=== PATIENT | female | born 1960 | race Caucasian/White ===

== ENCOUNTER → 2017-01-18 | Outpatient (CLI) | payer BC ==
--- NOTE | 2017-01-18 10:45 | USB ---
Reason for exam: additional evaluation requested from prior study. History: Patient had first child at age 32. Physical Findings: Nurse did not find any significant physical abnormalities on exam. US Breast LT Left breast ultrasound includes all four quadrants, the retroareolar region and axilla. Finding demonstrate no cystic or solid lesion seen. These results were verbally communicated with the patient and result sheet given to the patient on 01/18/17. ASSESSMENT: Negative, BI-RAD 1 RECOMMENDATION: Routine screening mammogram of both breasts. Manage on a clinical basis with regard to abnormal thermoscan.
== END ==
LOC: RADUSWWP 08:44
PROVIDERS: ATTEND Family Medicine
DX: R92.8 Other abnormal and inconclusive findings on diagnostic imaging of breast (principal)

== ENCOUNTER → 2018-10-12 | Outpatient (CLI) | payer BC ==
--- NOTE | 2018-10-12 08:01 | USB ---
Reason for exam: additional evaluation requested from prior study. History: Patient had first child at age 32. Physical Findings: Nurse did not find any significant physical abnormalities on exam. US Breast BILAT Right complete breast ultrasound includes all four quadrants, the retroareolar region and axilla. Finding demonstrates no cystic or solid lesion seen. Left complete breast ultrasound includes all four quadrants, the retroareolar region and axilla. Finding demonstrates no cystic or solid lesion seen. Compared to 01/18/17 ultrasound, mammogram is recommended. These results were verbally communicated with the patient and result sheet given to the patient on 10/12/18. ASSESSMENT: Negative, BI-RAD 1 RECOMMENDATION: Routine screening mammogram of both breasts. (due now for mammogram)
--- NOTE | 2018-10-12 10:43 | US ---
EXAMINATION TYPE: US transvaginal DATE OF EXAM: 10/12/2018 COMPARISON: NONE CLINICAL HISTORY: R10.2Pelvic and perineal pain. Pt states LLQ pain x many years/ history of ablatio n 8 yrs ago TECHNIQUE: Transvaginal (TV). Transvaginal sonographic images of the pelvis were acquired. Date of LMP: 8 yrs ago EXAM MEASUREMENTS: Uterus: 6.7 x 2.7 x 4.0 cm Endometrial Stripe: 0.2 cm Right Ovary: 1.5 x 1.9 x 1.0 cm Left Ovary: 1.8 x 1.2 x 1.3 cm 1. Uterus: Anteverted Heterogeneous 2. Endometrium: thickness wnl, small calcification= 0.2 x 0.2 x 0.2 cm 3. Right Ovary: wnl 4. Left Ovary: wnl 5. Bilateral Adnexa: wnl 6. Posterior cul-de-sac: wnl IMPRESSION: 1. Echogenic foci with posterior shadowing within the endometrial canal measuring approximately 0.2 c m in size.
== END | disposition home or self-care (01) ==
LOC: RADUSWWP 06:52
PROVIDERS: ATTEND Family Medicine
DX: R93.89 Abnormal findings on diagnostic imaging of other specified body structures (principal); R10.2 Pelvic and perineal pain; N63.0 Unspecified lump in unspecified breast
CPT/HCPCS: 76830

== ENCOUNTER 2019-10-23 16:24 | Observation (INO) | payer BC ==
[2019-10-23 18:04] LABS: HCT 41.9 % (34.0-46.0); HGB 14.7 gm/dL (11.4-16.0); MCH 30.9 pg (25.0-35.0); MCHC 35.1 g/dL (31.0-37.0); Mean Platelet Volume 7.9; Platelet Count 258 k/uL (150-450); RBC 4.76 m/uL (3.80-5.40); RDW 12.2 % (11.5-15.5); WBC 6.3 k/uL (3.8-10.6)
[2019-10-23 18:17] LABS: Albumin 4.7 g/dL (3.5-5.0); Calcium 9.7 mg/dL (8.4-10.2); Potassium 4.2 mmol/L (3.5-5.1); Total Bilirubin 0.6 mg/dL (0.2-1.3); Total Protein 8.1 g/dL (6.3-8.2)
[2019-10-23 18:21] LABS: Prothrombin Time 10.4 sec (9.0-12.0)
[2019-10-23 18:31] LABS: Band Neutrophils % 6 %; Eosinophils # (M) 0.06 k/uL (0-0.7); Lymphocytes # (M) 1.51 k/uL (1.0-4.8); Monocytes # (M) 0.25 k/uL (0-1.0); Neutrophils % (M) 65 %; Nucleated Red Blood Cells 0 /100 WBC (0-0); Total Cells Counted 100
[2019-10-23] MEDS ORDERED: HEPARIN SODIUM,PORCINE 5,000 UNIT/ML 1 ML VIAL IV PRN (18:34)
[2019-10-23] MEDS ORDERED: HEPARIN SODIUM,PORCINE 5,000 UNIT/ML 1 ML VIAL IV ONE (18:34)
[2019-10-23] MEDS ORDERED: HEPARIN SOD,PORK IN 0.45% NACL 25,000 UNIT in 0.45% NACL 1 250ML.BAG IV SCH (18:45)
[2019-10-23] MEDS ORDERED: NITROGLYCERIN SL TABS 0.4 MG TAB SUBLINGUAL PRN (18:50)
--- NOTE | 2019-10-23 18:55 | ED ---
General Adult HPI - General Source: patient, RN notes reviewed, old records reviewed Mode of arrival: wheelchair Limitations: no limitations <Brian Valle - Last Filed: 10/23/19 18:56> <Mariaa Alicia - Last Filed: 10/30/19 00:48> - General Chief complaint: Recheck/Abnormal Lab/Rx Stated complaint: abn EKG Time Seen by Provider: 10/23/19 16:56 - History of Present Illness Initial comments: 58-year-old female patient no pertinent past medical history presents to ED for chief complaint of atrial fibrillation. 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 An EKG was then performed which reportedly displayed a fibrillation patient was recommended to present to the emergency department. Pt has no history of atrial fibrillation. She reports that she is having some heart palpitations however they are very mild. Denies any other complaints this time. Denies any chest pain or shortness of breath. Systemic: Pt denies fatigue, fever/chills, rash. Pt denies weakness, night sweats, weight loss. Neuro: Pt denies headache, visual disturbances, syncope or pre-syncope. HEENT: Pt denies ocular discharge or irritation, otalgia, rhinorrhea, pharyngitis or notable lymphadenopathy. Cardiopulmonary: Pt denies chest pain, SOB, dyspnea on exertion. Abdominal/GI: Pt denies abdominal pain, n/v/d. : Pt denies dysuria, burning w/ urination, frequency/urgency. Denies new onset urinary or bowel incontinence. MSK: Pt denies myalgia, loss of strength or function in extremities. Neuro: Pt denies new onset weakness, paresthesias. (Brian Valle) - Related Data Home Medications Medication Instructions Recorded Confirmed Calcium/Potass/Magnesium 1 tab PO DAILY 10/23/19 10/23/19 Cholecalciferol [Vitamin D3 (25 1,000 unit PO DAILY 10/23/19 10/23/19 Mcg = 1000 Iu)] [place]-3 Fatty Acids/Fish Oil [Fish 1 cap PO DAILY 10/23/19 10/23/19 Oil 1,000 mg Softgel] Venlafaxine HCl 150 mg PO DAILY 10/23/19 10/23/19 Previous Rx's Medication Instructions Recorded Apixaban [Eliquis] 5 mg PO BID #60 tab 10/24/19 Metoprolol Tartrate [Lopressor] 25 mg PO BID #60 tab 10/24/19 Allergies Allergy/AdvReac Type Severity Reaction Status Date / Time No Known Allergies Allergy Verified 10/23/19 17:55 Review of Systems ROS Other: All systems not noted in ROS Statement are negative. <Brian Valle - Last Filed: 10/23/19 18:56> ROS Other: All systems not noted in ROS Statement are negative. <Mariaa Alicia - Last Filed: 10/30/19 00:48> ROS Statement: Those systems with pertinent positive or pertinent negative responses have been documented in the HPI. Past Medical History Past Medical History: No Reported History Additional Past Medical History / Comment(s): mitral valve prolapse History of Any Multi-Drug Resistant Organisms: None Reported Past Surgical History: Appendectomy, Section, Hernia Repair, Orthopedic Surgery, Uterine Ablation Additional Past Surgical History / Comment(s): eye D&C Past Psychological History: Anxiety, Bipolar, Depression Smoking Status: Never smoker Past Alcohol Use History: Occasional Past Drug Use History: None Reported <Brian Valle - Last Filed: 10/23/19 18:56> - Past Family History Father Family Medical History: Cancer Additional Family Medical History / Comment(s): colon cancer Mother Family Medical History: Cancer Additional Family Medical History / Comment(s): lung cancer, depression <Mariaa Alicia - Last Filed: 10/30/19 00:48> General Exam Limitations: no limitations <Brian Valle - Last Filed: 10/23/19 18:56> - General Exam Comments Initial Comments: Constitutional: NAD, AOX3, Pt has pleasant affect. HEENT: NC/AT, trachea midline, neck supple, no lymphadenopathy. Posterior pharynx non erythematous, without exudates. External ears appear normal, without discharge. Mucous membranes moist. Eyes PERRLA, EOM intact. There is no scleral icterus. No pallor noted. Cardiopulmonary: Irregularly irregular heart rate, no murmurs, rubs or gallops, no JVD noted. Lungs CTAB in anterior and posterior cantu. No peripheral edema. Abdominal exam: Abdomen soft and non-distended. Abdomen non-tender to palpation in all 4 quadrants. Bowel sounds active in LLQ. No hepatosplenomegaly. No ecchymosis Neuro: CN II-XII grossly intact. No nuchal rigidity. No raccon eyes, no juarez sign, no hemotympanum. No cervical spinal tenderness. MSK: No posterior calf tenderness bilaterally, homans sign negative bilaterally. Posterior tibialis and radial pulse +2 bilaterally. Sensation intact in upper and lower extremities. Full active ROM in upper and lower extremities, 5/5 stregnth. (Brian Valle) Course Vital Signs 10/23/19 10/23/19 10/23/19 16:27 17:31 18:23 Temperature 97.7 F 98.2 F Pulse Rate 61 77 Pulse Rate [ 111 H Screed Person ] Respiratory 18 16 Rate Blood Pressure 130/83 126/85 Blood Pressure [Left Arm] O2 Sat by Pulse 100 98 Oximetry 10/23/19 20:15 Temperature Pulse Rate Pulse Rate [ 129 H Screed Person ] Respiratory 16 Rate Blood Pressure Blood Pressure 118/77 [Left Arm] O2 Sat by Pulse 95 Oximetry Medical Decision Making - Lab Data Result diagrams: 10/23/19 17:15 10/23/19 17:15 - EKG Data -: EKG Interpreted by Ma (and Dr. Alicia ) <Brian Valle - Last Filed: 10/23/19 18:56> - Lab Data Result diagrams: 10/24/19 05:29 10/23/19 17:15 <Mariaa Alicia - Last Filed: 10/30/19 00:48> - Medical Decision Making 58-year-old female patient no pertinent past medical history presents to ED for chief complaint of atrial fibrillation. 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 An EKG was then performed which reportedly displayed a fibrillation patient was recommended to present to the emergency department. Pt has no history of atrial fibrillation. She reports that she is having some heart palpitations however they are very mild. Denies any other complaints this time. Denies any chest pain or shortness of breath. . Patient vital signs stable, afebrile. Physical exam displayed regular rate irregular heart rate, no other pathologic findings noted. EKG displayed atrial flutter with variable AV block. Laboratory investigations are unimpressive. Troponin is negative. Patient initiated on heparin drip, no rate control indicated at this point per attending physician. Patient admitted for cardiology consultation. Case discussed with Dr. Alicia. (Brian Valle) I was available for consultation in the emergency department. The history and physical exam were done by the midlevel provider. I was consulted for this patients care. I reviewed the case with the midlevel provider and based on their presentation of the patient, I agree with the assessment, medical decision making and plan of care as documented. Chart was dictated using [employer] dictation software. Attempts were made to correct any dictation errors however some typographical errors may persist. (Mariaa Alicia) - Lab Data Lab Results 10/23/19 10/23/19 10/23/19 Range/Units 17:15 17:15 17:15 WBC 6.3 (3.8-10.6) k/uL RBC 4.76 (3.80-5.40) m/uL Hgb 14.7 (11.4-16.0) gm/dL Hct 41.9 (34.0-46.0) % MCV 88.0 (80.0-100.0) fL MCH 30.9 (25.0-35.0) pg MCHC 35.1 (31.0-37.0) g/dL RDW 12.2 (11.5-15.5) % Plt Count 258 (150-450) k/uL Neutrophils % (Manual) 65 % Band Neutrophils % 6 % Lymphocytes % (Manual) 24 % Monocytes % (Manual) 4 % Eosinophils % (Manual) 1 % Neutrophils # SENIOR GIS ANALYST Neutrophils # (Manual) 4.40 (1.3-7.7) k/uL Lymphocytes # (Manual) 1.51 (1.0-4.8) k/uL Monocytes # (Manual) 0.25 (0-1.0) k/uL Eosinophils # (Manual) 0.06 (0-0.7) k/uL Nucleated RBCs 0 (0-0) /100 WBC Manual Slide Review Performed PT 10.4 (9.0-12.0) sec INR 1.0 (<1.2) APTT 26.0 (22.0-30.0) sec Sodium 137 (137-145) mmol/L Potassium 4.2 (3.5-5.1) mmol/L Chloride 100 (98-107) mmol/L Carbon Dioxide 28 (22-30) mmol/L Anion Gap 9 mmol/L BUN 17 (7-17) mg/dL Creatinine 0.88 (0.52-1.04) mg/dL Est GFR (CKD-EPI)AfAm 85 (>60 ml/min/1.73 sqM) Est GFR (CKD-EPI)NonAf 74 (>60 ml/min/1.73 sqM) Glucose 86 (74-99) mg/dL Calcium 9.7 (8.4-10.2) mg/dL Magnesium 2.0 (1.6-2.3) mg/dL Total Bilirubin 0.6 (0.2-1.3) mg/dL AST 29 (14-36) U/L ALT 24 (4-34) U/L Alkaline Phosphatase 74 (38-126) U/L Troponin I (0.000-0.034) ng/mL Total Protein 8.1 (6.3-8.2) g/dL Albumin 4.7 (3.5-5.0) g/dL TSH 2.260 (0.465-4.680) mIU/L 10/23/19 Range/Units 17:15 WBC (3.8-10.6) k/uL RBC (3.80-5.40) m/uL Hgb (11.4-16.0) gm/dL Hct (34.0-46.0) % MCV (80.0-100.0) fL MCH (25.0-35.0) pg MCHC (31.0-37.0) g/dL RDW (11.5-15.5) % Plt Count (150-450) k/uL Neutrophils % (Manual) % Band Neutrophils % % Lymphocytes % (Manual) % Monocytes % (Manual) % Eosinophils % (Manual) % Neutrophils # Neutrophils # (Manual) (1.3-7.7) k/uL Lymphocytes # (Manual) (1.0-4.8) k/uL Monocytes # (Manual) (0-1.0) k/uL Eosinophils # (Manual) (0-0.7) k/uL Nucleated RBCs (0-0) /100 WBC Manual Slide Review PT (9.0-12.0) sec INR (<1.2) APTT (22.0-30.0) sec Sodium (137-145) mmol/L Potassium (3.5-5.1) mmol/L Chloride (98-107) mmol/L Carbon Dioxide (22-30) mmol/L Anion Gap mmol/L BUN (7-17) mg/dL Creatinine (0.52-1.04) mg/dL Est GFR (CKD-EPI)AfAm (>60 ml/min/1.73 sqM) Est GFR (CKD-EPI)NonAf (>60 ml/min/1.73 sqM) Glucose (74-99) mg/dL Calcium (8.4-10.2) mg/dL Magnesium (1.6-2.3) mg/dL Total Bilirubin (0.2-1.3) mg/dL AST (14-36) U/L ALT (4-34) U/L Alkaline Phosphatase (38-126) U/L Troponin I <0.012 (0.000-0.034) ng/mL Total Protein (6.3-8.2) g/dL Albumin (3.5-5.0) g/dL TSH (0.465-4.680) mIU/L - EKG Data EKG Comments: Ventricular rate 79, QRS 94, QT/QTc 484/440. Atrial flutter with variable AV block. Possible inferior infarct, age undetermined. Abnormal EKG. (Brian Valle) Disposition Is patient prescribed a controlled substance at d/c from ED?: No <Brian Valle - Last Filed: 10/23/19 18:56> <Mariaa Alicia - Last Filed: 10/30/19 00:48> Clinical Impression: Atrial fibrillation Disposition: ADMITTED IP TO THIS HOSP Condition: Stable
[2019-10-23] MEDS: METOPROLOL TARTRATE 25 MG TAB PO SCH (20:14)
[2019-10-24 04:04] VITALS: RESP 16
[2019-10-24 06:57] LABS: HCT 40.9 % (34.0-46.0); HGB 14.2 gm/dL (11.4-16.0); MCHC 34.7 g/dL (31.0-37.0); MCV 89.3 fL (80.0-100.0); Mean Platelet Volume 8.2; Platelet Count 239 k/uL (150-450); RBC 4.58 m/uL (3.80-5.40); RDW 12.3 % (11.5-15.5); WBC 4.8 k/uL (3.8-10.6)
[2019-10-24 07:16] LABS: Cholesterol 208 mg/dL (<200); HDL Cholesterol 63 mg/dL (40-60); LDL Cholesterol,Calculated 130 mg/dL (0-99); Triglycerides 73 mg/dL (<150)
[2019-10-24 08:16] LABS: Eosinophils # (M) 0.05 k/uL (0-0.7); Lymphocytes # (M) 2.06 k/uL (1.0-4.8); Monocytes # (M) 0.38 k/uL (0-1.0); Neutrophils % (M) 48 %; Nucleated Red Blood Cells 0 /100 WBC (0-0); Total Cells Counted 100
[2019-10-24] MEDS: METOPROLOL TARTRATE 25 MG TAB PO SCH (09:00)
[2019-10-24] MEDS ORDERED: MAGNESIUM PO SCH (09:00)
[2019-10-24] MEDS ORDERED: VENLAFAXINE HCL 75 MG TAB PO SCH (09:00)
[2019-10-24] MEDS ORDERED: POTASS PO SCH (09:00)
[2019-10-24] MEDS ORDERED: CALCIUM PO SCH (09:00)
[2019-10-24] MEDS ORDERED: CHOLECALCIFEROL 1,000 UNIT TAB PO SCH (09:00)
--- NOTE | 2019-10-24 10:57 | ECHOF ---
Referral Reason:atrial fibrillation new onset MEASUREMENTS -------- HEIGHT: 165.1 cm WEIGHT: 71.2 kg BP: 106/65 RVIDd: 2.9 cm (< 3.3) IVSd: 1.2 cm (0.6 - 1.1) LVIDd: 3.5 cm (3.9 - 5.3) LVPWd: 0.9 cm (0.6 - 1.1) IVSs: 1.2 cm LVIDs: 2.3 cm LVPWs: 1.3 cm LA Diam: 4.2 cm (2.7 - 3.8) LAESV Index (A-L): 29.84 ml/m Ao Diam: 2.8 cm (2.0 - 3.7) AV Cusp: 1.6 cm (1.5 - 2.6) LA Diam: 3.7 cm (2.7 - 3.8) MV EXCURSION: 19.458 mm (> 18.000) MV EF SLOPE: 126 mm/s (70 - 150) EPSS: 0.3 cm MV E Vasyl: 0.86 m/s MV DecT: 114 ms MV A Vasyl: 0.02 m/s MV E/A Ratio: 38.00 RAP: 5.00 mmHg RVSP: 19.39 mmHg FINDINGS -------- The rhythm appears to be atrial flutter. This was a technically good study. The left ventricular size is normal. There is mild concentric left ventricular hypertrophy. Overa ll left ventricular systolic function is low-normal with, an EF between 50 - 55 %. The right ventricle is normal in size. Normal LA size by volume 22+/-6 ml/m2. The right atrial size is normal. There is mild aortic valve sclerosis. There is no evidence of aortic regurgitation. Mild mitral annular calcification present. Mild mitral regurgitation is present. Mild tricuspid regurgitation present. Right ventricular systolic pressure is normal at < 35 mmHg. There is no evidence of pulmonary hypertension. There is no pulmonic regurgitation present. The aortic root size is normal. There is no pericardial effusion. CONCLUSIONS -------- 1. The rhythm appears to be atrial flutter. 2. This was a technically good study. 3. The left ventricular size is normal. 4. There is mild concentric left ventricular hypertrophy. 5. Overall left ventricular systolic function is low-normal with, an EF between 50 - 55 %. 6. Normal LA size by volume 22+/-6 ml/m2. 7. There is mild aortic valve sclerosis. 8. Mild mitral annular calcification present. 9. Mild mitral regurgitation is present. 10. Mild tricuspid regurgitation present. 11. Right ventricular systolic pressure is normal at < 35 mmHg. 12. There is no pulmonic regurgitation present. 13. The aortic root size is normal. 14. There is no pericardial effusion. SERVICE ADMINISTRATOR: Alissa Gill RDCS
--- NOTE | 2019-10-24 11:05 | P.HPIM ---
History of Present Illness 3-year-old Female Was Sent in from of Primary Care Physician Office Because of Atrial Fibrillation Patient Doesn't Have Any Symptoms of Palpitations Denied Any Chest Pain Shortness of Breath.. Denied any fever chills nausea vomiting abdominal pain dysuria. Patient is not dehydrated doesn't have any sepsis at this time. Patient is rate controlled at this time and metoprolol patient was given metoprolol patient was started on IV heparin. Patient chads score is 0. Patient had an echo cardiac exam which showed normal ejection fraction but some concentric left ventricular hypertrophy Review of Systems REVIEW OF SYSTEMS: CONSTITUTIONAL: No fever, no malaise, no fatigue. HEENT: No recent visual problems or hearing problems. Denied any sore throat. CARDIOVASCULAR: No chest pain, orthopnea, PND, no palpitations, no syncope. PULMONARY: No shortness of breath, no cough, no hemoptysis. GASTROINTESTINAL: No diarrhea, no nausea, no vomiting, no abdominal pain. NEUROLOGICAL: No headaches, no weakness, no numbness. HEMATOLOGICAL: Denies any bleeding or petechiae. GENITOURINARY: Denies any burning micturition, frequency, or urgency. MUSCULOSKELETAL/RHEUMATOLOGICAL: Denies any joint pain, swelling, or any muscle pain. ENDOCRINE: Denies any polyuria or polydipsia. The rest of the 14-point review of systems is negative. Past Medical History Past Medical History: No Reported History Additional Past Medical History / Comment(s): mitral valve prolapse History of Any Multi-Drug Resistant Organisms: None Reported Past Surgical History: Appendectomy, Section, Hernia Repair, Orthopedic Surgery, Uterine Ablation Additional Past Surgical History / Comment(s): eye D&C, lasix on eyes, carpal tunnel right hand, right shoulder surgery. Past Psychological History: Anxiety, Bipolar, Depression Smoking Status: Never smoker Past Alcohol Use History: Occasional Past Drug Use History: None Reported - Past Family History Father Family Medical History: Cancer Additional Family Medical History / Comment(s): colon cancer Mother Family Medical History: Cancer Additional Family Medical History / Comment(s): lung cancer, depression Medications and Allergies Home Medications Medication Instructions Recorded Confirmed Type Calcium/Potass/Magnesium 1 tab PO DAILY 10/23/19 10/23/19 History Cholecalciferol [Vitamin D3 (25 1,000 unit PO DAILY 10/23/19 10/23/19 History Mcg = 1000 Iu)] [place]-3 Fatty Acids/Fish Oil [Fish 1 cap PO DAILY 10/23/19 10/23/19 History Oil 1,000 mg Softgel] Venlafaxine HCl 150 mg PO DAILY 10/23/19 10/23/19 History Apixaban [Eliquis] 5 mg PO BID #60 tab 10/24/19 Rx Metoprolol Tartrate [Lopressor] 25 mg PO BID #60 tab 10/24/19 Rx Allergies Allergy/AdvReac Type Severity Reaction Status Date / Time No Known Allergies Allergy Verified 10/23/19 17:55 Physical Exam Vitals: Vital Signs Temp Pulse Pulse Pulse Resp BP BP 10/24/19 08:15 97.9 F 78 16 104/69 10/24/19 04:00 97.7 F 70 16 106/65 10/24/19 03:50 16 10/24/19 00:00 98 F 74 18 113/78 10/23/19 23:37 98.2 F 94 18 104/69 10/23/19 20:15 129 H 16 118/77 10/23/19 18:23 98.2 F 77 16 126/85 10/23/19 17:31 111 H 10/23/19 16:27 97.7 F 61 18 130/83 Pulse Ox 10/24/19 08:15 98 10/24/19 04:00 97 10/24/19 03:50 10/24/19 00:00 97 10/23/19 23:37 96 10/23/19 20:15 95 10/23/19 18:23 98 10/23/19 17:31 10/23/19 16:27 100 Intake and Output 10/23/19 10/24/19 10/24/19 22:59 06:59 14:59 Intake Total 240 Balance 240 Intake: Oral 240 Other: # Voids 1 1 Weight 72.575 kg 71.6 kg PHYSICAL EXAMINATION: GENERAL: The patient is alert and oriented x3, not in any acute distress. Well d eveloped, well nourished. HEENT: Pupils are round and equally reacting to light. EOMI. No scleral icterus. No conjunctival pallor. Normocephalic, atraumatic. No pharyngeal erythema. No thyromegaly. CARDIOVASCULAR: S1 and S2 present. No murmurs, rubs, or gallops. PULMONARY: Chest is clear to auscultation, no wheezing or crackles. ABDOMEN: Soft, nontender, nondistended, normoactive bowel sounds. No palpable organomegaly. MUSCULOSKELETAL: No joint swelling or deformity. EXTREMITIES: No cyanosis, clubbing, or pedal edema. NEUROLOGICAL: Gross neurological examination did not reveal any focal deficits. SKIN: No rashes. Results CBC & Chem 7: 10/24/19 05:29 10/23/19 17:15 Labs: Abnormal Lab Results - Last 24 Hours (Table) 10/24/19 10/24/19 10/24/19 Range/Units 00:04 05:29 05:29 APTT 65.3 H 60.8 H (22.0-30.0) sec Cholesterol 208 H (<200) mg/dL LDL Cholesterol, Calc 130 H (0-99) mg/dL HDL Cholesterol 63 H (40-60) mg/dL Thrombosis Risk Factor Assmnt - Choose All That Apply Each Factor Represents 1 point: Age 41-60 years Thrombosis Risk Factor Assessment Total Risk Factor Score: 1 Thrombosis Risk Factor Assessment Level: Low Risk Assessment and Plan Plan: New-onset atrial flutter: Patient will be on beta shabana and anticoagulation as per cardiology echocardiogram within normal limits. Patient will need tempora ry anticoagulation afebrile cardiology is planning on cardioversion down the line. - hyperlipidemia: Patient prefers to change her diet doesn't want to be in a statin nightly counseling was provided. Patient had LDL of 130 -Depression
[2019-10-24 12:27] VITALS: BP 109/73; PULSE 74; TEMP 98.3
--- NOTE | 2019-11-07 13:50 | P.DS ---
Providers Date of admission: 10/23/19 18:55 Attending physician: Jovani Woods Consults: 10/23/19 18:51 Consult Physician Urgent Consulting Provider: Franklin Gamez Consult Reason/Comments: atrial fibrillation new onset Do you want consulting provider notified?: Yes Primary care physician: Hernesto Chavarria [facility] [place] Course: Please of today chair for further he does patient was discharged on the same day of admission Patient Condition at Discharge: Stable Plan - Discharge Summary Discharge Rx Participant: Yes New Discharge Prescriptions: New Metoprolol Tartrate [Lopressor] 25 mg PO BID #60 tab Apixaban [Eliquis] 5 mg PO BID #60 tab Continue [place]-3 Fatty Acids/Fish Oil [Fish Oil 1,000 mg Softgel] 1 cap PO DAILY Calcium/Potass/Magnesium 1 tab PO DAILY Cholecalciferol [Vitamin D3 (25 Mcg = 1000 Iu)] 1,000 unit PO DAILY Venlafaxine HCl 150 mg PO DAILY Discharge Medication List Calcium/Potass/Magnesium 1 tab PO DAILY 10/23/19 [History] Cholecalciferol [Vitamin D3 (25 Mcg = 1000 Iu)] 1,000 unit PO DAILY 10/23/19 [History] [place]-3 Fatty Acids/Fish Oil [Fish Oil 1,000 mg Softgel] 1 cap PO DAILY 10/23/19 [History] Venlafaxine HCl 150 mg PO DAILY 10/23/19 [History] Apixaban [Eliquis] 5 mg PO BID #60 tab 10/24/19 [Rx] Metoprolol Tartrate [Lopressor] 25 mg PO BID #60 tab 10/24/19 [Rx] Follow up Appointment(s)/Referral(s): Hernesto Chavarria MD [Primary Care Provider] - 10/31/19 11:30 am (Wednesday) Shahab Eller MD [STAFF PHYSICIAN] - 11/09/19 10:45 am ( -please bring all ID and your list of medications) Patient Instructions/Handouts: Atrial Flutter (DC), Safe Use of Anticoagulants (DC) Discharge Disposition: HOME SELF-CARE
== END 2019-10-24 14:22 | disposition home or self-care (01) ==
LOC: EC 16:24 → 3SCARD 18:55
PROVIDERS: ADMIT Internal Medicine; ATTEND Internal Medicine
DX: I48.92 Unspecified atrial flutter (principal); E78.5 Hyperlipidemia, unspecified; Z71.89 Other specified counseling; F31.9 Bipolar disorder, unspecified; F41.9 Anxiety disorder, unspecified; I34.1 Nonrheumatic mitral (valve) prolapse; Z81.8 Family history of other mental and behavioral disorders; Z80.1 Family history of malignant neoplasm of trachea, bronchus and lung; Z80.0 Family history of malignant neoplasm of digestive organs; Z79.899 Other long term (current) drug therapy
CPT/HCPCS: 93005 ×2; 96376; 96365; 99285; 36415; 93306; 80061; 80053; 84443; 83735; 84484 ×2; 85025 ×2; 85610; 85730 ×2; G0378 ×2; J1644 ×2